=== PATIENT | female | born 1990 | race Caucasian/White ===

== ENCOUNTER 2016-07-11 19:26 | Emergency (ER) | payer OTHER ==
--- NOTE | 2016-07-11 21:18 | ED ORDER SUMMARY ---
..... Patient: POLI NAVAS OrderSheet [facility] VisitID: [id number] [address] [place] [address] 25y, F Registration Date/Time: 07/11/2016 ORDER SHEET Weight: 56.6 kg (stated) Allergies: Vicodin GENERAL ORDERS: CBC w Diff Urgent (20:07/11/2016 EKoroleva P.A.-C) (Ack 20:09 TBergley) (20:29 JRomanelli R.N.) CMP Urgent (20:07/11/2016 EKoroleva P.A.-C) (Ack 20:09 TBergley) (20:29 JRomanelli R.N.) UA-Culture if indicated Urgent (20:32 07/11/2016 JRomanelli R.N. verbal order read back to EKoroleva P.A.-C) (20:32 JRomanelli R.N.) Urine Urgent (20:32 07/11/2016 JRomanelli R.N. verbal order read back to EKoroleva P.A.-C) (20:32 JRomanelli R.N.) MEDICATION ORDERS: IV FLUIDS: IV Saline Lock (20:01 07/11/2016 EKoroleva P.A.-C) (20:29 JRomanelli R.N.) Zofran IV 4 mg (NOW) (20:01 07/11/2016 EKoroleva P.A.-C) (20:30 JRomanelli R.N.) IV NS : initial bolus 1000 mL (1000 mL/hr), then 1000 mL/hr for X1 (NOW); Lawson (20:07 07/11/2016 EKoroleva P.A.-C) (20:31 JRomanelli R.N.) Reglan IV 10 mg (NOW) (21:17 07/11/2016 EKoroleva P.A.-C) (21:36 JQuivey R.N.) Zofran IV 4 mg (NOW) (21:37 07/11/2016 EKoroleva P.A.-C) (Ack 21:48 JQuivey R.N.) (21:49 JQuivey R.N.) ORDER SHEET NOTES: [Electronically signed by Chiqui Espino P.A.-C (22:15 07/11/2016)] [Electronically signed by Mars Thomas R.N. (22:52 07/11/2016)] [Electronically locked/signed by Mars Thomas R.N. (22:52 07/11/2016)]
--- NOTE | 2016-07-11 21:18 | ED NURSING NOTES ---
Clinical Report - Nurses [facility] [address] [place] [address] 07/11/2016 19:30 Patient: POLI NAVAS TRIAGE Triage time 19:45 Jul 11 2016. Acuity: LEVEL 3. Chief Complaint: ABDOMINAL PAIN, NAUSEA, VOMITING and DIARRHEA. Alert. LINDA COMA SCORE: [place] Coma Scale: 15- eyes open spontaneously (4); best verbal response- oriented x 4 (5); best motor response- obeys commands (6). --20:04 Mars Thomas R.N. 19:51 07/11/16. BP: 119/90. HR: 102. RR: 18. O2 saturation: 97% on room air. Temp: 99.2 F. Pain level now: 6/10. Additional comments: Abdominal Pain. --20:04 Mars Thomas R.N. Weight: 56.6 kg stated. Height/Length: 65 inches Per Patient. BMI: 20.8. --19:59 Mars Thomas R.N. Medications Acyclovir Oral, daily (for "cold" sores). --19:53 Mars Thomas R.N. Control Pills 1 pill, daily. --19:54 aMrs Thomas R.N. Medication/allergy information source: the patient. --20:04 Mars Thomas R.N. Allergies Vicodin. Definite Moderate(anxiety) (and hematemesis) --19:53 Mars Thomas R.N. History Arrived by private vehicle. Historian: patient. Accompanied by family and mother. ( Abdominal Pain associated with N/V for the last 2 1/2 hours. Pt also states hx of diarrhea). This started today. Onset. (about 2 1/2 hours ago). She has had nausea, vomiting, diarrhea and abdominal pain. Treatment COMBAT SYSTEMS ENGINEER: None. PAST MEDICAL HX: Immunizations: status is unknown and seasonal influenza: first dose. Last normal menstrual period was 3 weeks ago. Denies current . SOCIAL HX: Never smoker. Alcohol use; consumes one liquor weekly. No drug use. No recent travel. ABUSE ASSESSMENT: No report of abuse. FALL RISK ASSESSMENT: Fall risk assessment completed. No fall risk identified. NUTRITIONAL RISK ASSESSMENT: The nutritional risk assessment revealed no deficiencies. FUNCTIONAL ASSESSMENT: Functional assessment: no impairments noted. LEARNING NEEDS ASSESSMENT: The learning needs assessment revealed no barriers. SKIN INTEGRITY ASSESSMENT: Skin integrity risk assessment completed. No skin integrity risk identified. --20:04 Mars Thomas R.N. PROBLEMS: IBS. Renal Lithiasis. --19:57 Mars Thomas R.N. ADDITIONAL SURGERIES: Colonoscopy. --19:57 Mars Thomas R.N. Interventions ID and allergy band on patient. To treatment room. --20:04 Mars Thomas R.N. PHYSICAL ASSESSMENT To room via wheelchair. GENERAL / NEURO / PSYCH: Alert. Oriented X 4. HEENT: Mucous membranes are pink. RESPIRATORY: Respirations not labored. CVS: Normal sinus rhythm noted. Capillary refill less than 2 seconds. GI / : Abdominal tenderness. SKIN: Skin is warm and dry. --20:04 Mars Thomas R.N. NURSING PROGRESS NOTES Patient gowned. Reassurance given to the patient. Patient identifiers checked. Call light placed in reach. Side rails up x 1. Bed placed in lowest position. Brakes of bed on. Patient ready for evaluation- chart flagged and PA notified. --20:05 Mars Thomas R.N. 20:15 07/11/2016 Site #1 started via IV in the left antecubital space with an 20g angiocath, with aseptic technique and good blood return; one attempt. Blood drawn: rainbow set. Labeled in the presence of the patient and sent to the lab. --20:29 Mars Thomas R.N. 20:20 07/11/2016 Zofran (Ondansetron HCl) IVP 4 mg given over 2 second(s) via site #1. Allergies verified and confirmed 5 rights. IV patency established. IV site checked: no pain, redness, or swelling. IV flushed thoroughly pre- and post-medication administration. IVP given by RN. --20:30 Mars Thomas R.N. 20:20 07/11/2016 Started bag #1 1000 mL IV Fluids IV NS (Saline); at 999 mL/hr over 60 minute(s) via site #1 via IV pump. Allergies verified and confirmed 5 rights. IV patency established. IV site checked: no pain, redness, or swelling. IV flushed thoroughly pre- and post-medication administration. --20:31 Mars Thomas R.N. 21:20 07/11/2016 IV Fluids IV NS Bag Change: bag #1 infused. Total amount infused: 1000. STARTED bag #2 at 1000 mL/hr via IV pump. Confirmed 5 rights. IV patency established. IV site checked: no pain, redness, or swelling. IV flushed thoroughly. --21:30 Mars Thomas R.N. 21:34 07/11/2016 Reglan (Metoclopramide HCl) IVP 10 mg given over 2 minute(s) via site #1. Allergies verified and confirmed 5 rights. IV patency established. IV site checked: no pain, redness, or swelling. IV flushed thoroughly pre- and post-medication administration. --21:36 Mars Costa R.N. 21:49 07/11/2016 Zofran (Ondansetron HCl) IVP 4 mg given over 2 minute(s) via site #1. Allergies verified and confirmed 5 rights. IV patency established. IV site checked: no pain, redness, or swelling. IV flushed thoroughly pre- and post-medication administration. --21:49 Mars Costa R.N. 21:15 07/11/16. BP: 100/58. HR: 82. RR: 18. O2 saturation: 99% on room air. Pain level now: 3/10. --22:46 Mars Thomas R.N. 21:45 07/11/16. BP: 103/62. HR: 83. RR: 18. O2 saturation: 97%. Pain level now: 0/10. --22:49 Mars Thomas R.N. 22:20 07/11/2016 Site #1 removed upon discharge. Catheter intact. Manual pressure, pressure dressing and bandaid applied. --22:51 Mars Thomas R.N. 22:20 07/11/2016 IV Fluids IV NS Discontinued: bag #2 infused upon discharge. Total amount infused: 1000 mL. IV patency established. IV site checked: no pain, redness, or swelling. IV flushed thoroughly. --22:50 Mars Thomas R.N. DISPOSITION / DISCHARGE 22:15 07/11/16. BP: 102/64. HR: 77. RR: 18. O2 saturation: 98% on room air. Temp: 99 F. Pain level now: 0/10. --22:40 Mars Thomas R.N. Departure time: 2224. --22:40 Mars Thomas R.N. 22:25. Condition at departure: improved. No learning barriers present. Discharge instructions provided and reviewed with the patient and parent. Reviewed medication(s) information (prescription given to mother). Reviewed referral to family practice for followup. Work note given. Patient and parent verbalized understanding. Written instructions provided in Thai. The patient was discharged by the physician assistant track and field coach. She was discharged home and accompanied by parent. She left the Emergency Department ambulatory and via private vehicle. Parent driving. --22:43 Mars Thomas R.N. Locked/Released at 07/11/2016 22:52 by Mars Thomas R.N.
--- NOTE | 2016-07-11 21:18 | ED CLINICAL REPORT ---
Clinical Report - Physicians/Mid Levels [facility] [address] [place] [place] [address] 07/11/2016 19:30 Patient: POLI NAVAS Time Seen: 20:02 Jul 11 2016. Arrived- By private vehicle. Historian- patient. HISTORY OF PRESENT ILLNESS Chief Complaint: VOMITING. This started just prior to arrival and is still present. The patient has had nausea, vomiting and diarrhea. No flank pain. Has not recently been on antibiotics. Possible bad food exposure. The illness is described as mild. (Patient reports recently eating food at a function, and subsequent to such developing nausea vomiting and diarrhea. No other sick contacts. No fevers.. Previously this am felt well. Cramping generalized abd pain post emesis.). REVIEW OF SYSTEMS No fever, difficulty with urination, headache, dizziness or cough. Denies current . All systems otherwise negative, except as recorded above. PAST HISTORY Problems: IBS. Renal Lithiasis. Additional Surgeries: Colonoscopy. Medications: Control Pills 1 pill, daily. Acyclovir Oral, daily (for "cold" sores). Allergies: Vicodin. Definite Moderate(anxiety) (and hematemesis). SOCIAL HISTORY Never smoker. Alcohol use. ADDITIONAL NOTES The nursing notes have been reviewed. PHYSICAL EXAM Vital Signs: 07/11/2016 19:51 BP: 119/90. HR: 102. RR: 18. O2 saturation: 97%. Temp: 99.2 F. Pain level now: 6/10. Appearance: Alert. Eyes: Eyes normal inspection. ENT: Nose normal. Pharynx normal. Neck: Normal inspection. CVS: Normal heart rate and rhythm. Heart sounds normal. Respiratory: No respiratory distress. Breath sounds normal. No accessory muscle use or decreased air movement. Abdomen: Soft and nontender. No abdominal tenderness or rebound tenderness. The bowel sounds are not abnormal. Neuro: Oriented X 3. No motor deficit. LABS, X-RAYS, AND EKG Laboratory Tests: UA-Culture if indicated: (SAVANNAH: 07/11/2016 20:07) ( MsgRcvd 07/11/2016 21:14) Final results Test Result Flag Units (Reference) URINE COLOR YELLOW URINE APPEARANCE CLEAR URINE GLUCOSE NEGATIVE (NEGATIVE) URINE BILIRUBIN NEGATIVE (NEGATIVE) URINE KETONE 1+ (NEGATIVE) URINE SPECIFIC GRAVITY 1.025 (1.010-1.030) URINE PH 6.0 (5.0-8.0) URINE PROTEIN NEGATIVE (NEGATIVE) URINE UROBILINOGEN 0.2 EU/dL (0.2-1.0) URINE NITRITE NEGATIVE (NEGATIVE) URINE BLOOD NEGATIVE (NEGATIVE) URINE LEUK ESTERASE NEGATIVE (NEGATIVE) URINE RBC 0-1 rbc/hpf (0-1) URINE WBC 0-1 wbc/hpf (0-1) URINE EPITHELIAL CELLS 0-1 EPI/hpf (0-5) URINE BACTERIA TRACE (<1+) (NONE SEEN) URINE COMMENT CULT NOT INDICATED URINE CULTURES ARE SET-UP BASED ON THE FOLLOWING CRITERIA:POSITIVE NITRITEPOSITIVE LEUKOCYTE ESTERASEGREATER THAN 10 WHITE BLOOD CELLSMODERATE (2+) OR GREATER BACTERIA Urine: (SAVANNAH: 07/11/2016 20:07) ( [facility] 07/11/2016 20:44) Final results Test Result Flag Units (Reference) URINE NEGATIVE CBC w Diff: (SAVANNAH: 07/11/2016 20:15) ( [facility] 07/11/2016 20:44) Final results Test Result Flag Units (Reference) WHITE BLOOD COUNT 15.5 H K/uL (4.5-11.5) RED BLOOD COUNT 5.17 M/uL (4.00-5.20) HEMOGLOBIN 15.9 gm/dL (12.0-16.0) HEMATOCRIT 47.4 H % (36.0-46.0) MEAN CELL VOLUME 92 fL (80-100) MEAN CORPUSCULAR HGB 31 pg (26-34) MEAN CORPUSCULAR HGB CONC 34 g/dL (31-37) RED CELL DISTRIBUTION WIDTH 12.4 % (11.6-14.8) PLATELET COUNT 290 K/uL (150-400) NEUTROPHIL % 91.4 H % (50-75) LYMPH % 4.3 L % (25-40) MONO % 3.9 % (3-14) EOSINOPHIL % 0.3 % (0-4) BASOPHIL % 0.1 % (0-2) CMP: (SAVANNAH: 07/11/2016 20:15) ( MsgRcvd 07/11/2016 21:02) Final results Test Result Flag Units (Reference) GLUCOSE 101 mg/dL (70-110) BUN 16 mg/dL (7-18) CREATININE 0.7 mg/dL (0.6-1.3) Estimated GFR >60 mL/min Estimated GFR- >60 mL/min Note: Persistent reduction over 3 months in eGFR<60 mL/min/1.73 m2 defines CKD. Patients with eGFR values>=60 mL/min/1.73 m2 may also have CKD if evidence ofpersistent proteinuria. Additional information may be foundat www.kidney.org. SODIUM 143 mmol/L (136-145) POTASSIUM 3.6 mmol/L (3.5-5.1) CHLORIDE 106 mmol/L (98-107) CARBON DIOXIDE 25 mmol/L (21-32) CALCIUM 8.6 mg/dL (8.5-10.1) TOTAL PROTEIN 7.7 g/dL (6.4-8.2) ALBUMIN 4.1 g/dL (3.3-5.0) BILIRUBIN, TOTAL 0.5 mg/dL (0.0-1.0) ALKALINE PHOSPHATASE 64 U/L (46-116) AST (SGOT) 21 U/L (15-37) ALT (SGPT) 25 U/L (12-78) . PROGRESS AND PROCEDURES Course of Care: Patient with improvement of symptoms here in the ER with antiemetic, IV hydration. Emesis with dehydration noted on exam, leukocytosis with a left shift, suspected fromrecent viral etiology as well as new onset of emesis. Abdomen is now soft. She is asymptomatic. Suspicion for acute surgical abdomenin light of an exam which is unremarkable is low. Patient is stable. Patient/family counseled. Differential Diagnosis: I considered gastric etiology, gastritis, gastroenteritis, peptic ulcer disease, acute appendicitis, mesenteric lymphadenitis, Meckel's diverticulum, infarction of appendix epiploica of colon, diverticulitis, small bowel obstruction, biliary colic, hepatitis, splenic injury, intraabdominal abscess, urinary tract infection, cystitis, ovarian cyst, ovarian torsion, , pelvic inflammatory disease and pelvic abscess as a possible cause of abdominal pain in this patient. This is a partial list of diagnoses considered. Disposition: Discharged. Condition: good. CLINICAL IMPRESSION Acute abdominal pain. Vomiting with nausea and volume depletion. INSTRUCTIONS Rest. Drink plenty of fluids. Prescription Medications: Zofran (orally disintegrating tablets) 4 mg: take 1 orally every 6 hours for 3 days as needed for nausea. Dispense ten (10). No refill. Reglan 10 mg tablets: take 1 orally every 6 hours for 3 days as needed for nausea or vomiting. Dispense ten (10). No refills. Substitution is permissible. Follow-up: Follow up with your doctor in three days. Understanding of the discharge instructions verbalized. (Electronically signed by Chiqui Espino P.A.-C 07/11/2016 22:15)
--- NOTE | 2016-07-11 21:18 | ED NURSING NOTES ---
Clinical Report - Nurses [facility] [address] [place] [address] 07/11/2016 19:30 Patient: POLI NAVAS TRIAGE Triage time 19:45 Jul 11 2016. Acuity: LEVEL 3. Chief Complaint: ABDOMINAL PAIN, NAUSEA, VOMITING and DIARRHEA. Alert. LINDA COMA SCORE: [place] Coma Scale: 15- eyes open spontaneously (4); best verbal response- oriented x 4 (5); best motor response- obeys commands (6). --20:04 Mars Thomas R.N. 19:51 07/11/16. BP: 119/90. HR: 102. RR: 18. O2 saturation: 97% on room air. Temp: 99.2 F. Pain level now: 6/10. Additional comments: Abdominal Pain. --20:04 Mars Thomas R.N. Weight: 56.6 kg stated. Height/Length: 65 inches Per Patient. BMI: 20.8. --19:59 Mars Thomas R.N. Medications Acyclovir Oral, daily (for "cold" sores). --19:53 Mars Thomas R.N. Control Pills 1 pill, daily. --19:54 Mars Thomas R.N. Medication/allergy information source: the patient. --20:04 Mars Thomas R.N. Allergies Vicodin. Definite Moderate(anxiety) (and hematemesis) --19:53 Mars Thomas R.N. History Arrived by private vehicle. Historian: patient. Accompanied by family and mother. ( Abdominal Pain associated with N/V for the last 2 1/2 hours. Pt also states hx of diarrhea). This started today. Onset. (about 2 1/2 hours ago). She has had nausea, vomiting, diarrhea and abdominal pain. Treatment CONTRACT LEAD: None. PAST MEDICAL HX: Immunizations: status is unknown and seasonal influenza: first dose. Last normal menstrual period was 3 weeks ago. Denies current . SOCIAL HX: Never smoker. Alcohol use; consumes one liquor weekly. No drug use. No recent travel. ABUSE ASSESSMENT: No report of abuse. FALL RISK ASSESSMENT: Fall risk assessment completed. No fall risk identified. NUTRITIONAL RISK ASSESSMENT: The nutritional risk assessment revealed no deficiencies. FUNCTIONAL ASSESSMENT: Functional assessment: no impairments noted. LEARNING NEEDS ASSESSMENT: The learning needs assessment revealed no barriers. SKIN INTEGRITY ASSESSMENT: Skin integrity risk assessment completed. No skin integrity risk identified. --20:04 Mars Thomas R.N. PROBLEMS: IBS. Renal Lithiasis. --19:57 Mars Thomas R.N. ADDITIONAL SURGERIES: Colonoscopy. --19:57 Mars Thomas R.N. Interventions ID and allergy band on patient. To treatment room. --20:04 Mars Thomas R.N. PHYSICAL ASSESSMENT To room via wheelchair. GENERAL / NEURO / PSYCH: Alert. Oriented X 4. HEENT: Mucous membranes are pink. RESPIRATORY: Respirations not labored. CVS: Normal sinus rhythm noted. Capillary refill less than 2 seconds. GI / : Abdominal tenderness. SKIN: Skin is warm and dry. --20:04 Mars Thomas R.N. NURSING PROGRESS NOTES Patient gowned. Reassurance given to the patient. Patient identifiers checked. Call light placed in reach. Side rails up x 1. Bed placed in lowest position. Brakes of bed on. Patient ready for evaluation- chart flagged and PA notified. --20:05 Mars Thomas R.N. 20:15 07/11/2016 Site #1 started via IV in the left antecubital space with an 20g angiocath, with aseptic technique and good blood return; one attempt. Blood drawn: rainbow set. Labeled in the presence of the patient and sent to the lab. --20:29 Mars Thomas R.N. 20:20 07/11/2016 Zofran (Ondansetron HCl) IVP 4 mg given over 2 second(s) via site #1. Allergies verified and confirmed 5 rights. IV patency established. IV site checked: no pain, redness, or swelling. IV flushed thoroughly pre- and post-medication administration. IVP given by RN. --20:30 Mars Thomas R.N. 20:20 07/11/2016 Started bag #1 1000 mL IV Fluids IV NS (Saline); at 999 mL/hr over 60 minute(s) via site #1 via IV pump. Allergies verified and confirmed 5 rights. IV patency established. IV site checked: no pain, redness, or swelling. IV flushed thoroughly pre- and post-medication administration. --20:31 Mars Thomas R.N. 21:20 07/11/2016 IV Fluids IV NS Bag Change: bag #1 infused. Total amount infused: 1000. STARTED bag #2 at 1000 mL/hr via IV pump. Confirmed 5 rights. IV patency established. IV site checked: no pain, redness, or swelling. IV flushed thoroughly. --21:30 Mars Thomas R.N. 21:34 07/11/2016 Reglan (Metoclopramide HCl) IVP 10 mg given over 2 minute(s) via site #1. Allergies verified and confirmed 5 rights. IV patency established. IV site checked: no pain, redness, or swelling. IV flushed thoroughly pre- and post-medication administration. --21:36 Mars Costa R.N. 21:49 07/11/2016 Zofran (Ondansetron HCl) IVP 4 mg given over 2 minute(s) via site #1. Allergies verified and confirmed 5 rights. IV patency established. IV site checked: no pain, redness, or swelling. IV flushed thoroughly pre- and post-medication administration. --21:49 Mars Costa R.N. 21:15 07/11/16. BP: 100/58. HR: 82. RR: 18. O2 saturation: 99% on room air. Pain level now: 3/10. --22:46 Mars Thomas R.N. 21:45 07/11/16. BP: 103/62. HR: 83. RR: 18. O2 saturation: 97%. Pain level now: 0/10. --22:49 Mars Thomas R.N. 22:20 07/11/2016 Site #1 removed upon discharge. Catheter intact. Manual pressure, pressure dressing and bandaid applied. --22:51 Mars Thomas R.N. 22:20 07/11/2016 IV Fluids IV NS Discontinued: bag #2 infused upon discharge. Total amount infused: 1000 mL. IV patency established. IV site checked: no pain, redness, or swelling. IV flushed thoroughly. --22:50 Mars Thomas R.N. DISPOSITION / DISCHARGE 22:15 07/11/16. BP: 102/64. HR: 77. RR: 18. O2 saturation: 98% on room air. Temp: 99 F. Pain level now: 0/10. --22:40 Mars Thomas R.N. Departure time: 2224. --22:40 Mars Thomas R.N. 22:25. Condition at departure: improved. No learning barriers present. Discharge instructions provided and reviewed with the patient and parent. Reviewed medication(s) information (prescription given to mother). Reviewed referral to family practice for followup. Work note given. Patient and parent verbalized understanding. Written instructions provided in Maltese. The patient was discharged by the physician assistant spa director. She was discharged home and accompanied by parent. She left the Emergency Department ambulatory and via private vehicle. Parent driving. --22:43 Mars Thomas R.N. Locked/Released at 07/11/2016 22:52 by Mars Thomas R.N.
--- NOTE | 2016-07-11 21:18 | ED ORDER SUMMARY ---
..... Patient: POLI NAVAS OrderSheet [facility] VisitID: [id number] [address] [place] [address] 25y, F Registration Date/Time: 07/11/2016 ORDER SHEET Weight: 56.6 kg (stated) Allergies: Vicodin GENERAL ORDERS: CBC w Diff Urgent (20:07/11/2016 EKoroleva P.A.-C) (Ack 20:09 TBergley) (20:29 JRomanelli R.N.) CMP Urgent (20:07/11/2016 EKoroleva P.A.-C) (Ack 20:09 TBergley) (20:29 JRomanelli R.N.) UA-Culture if indicated Urgent (20:32 07/11/2016 JRomanelli R.N. verbal order read back to EKoroleva P.A.-C) (20:32 JRomanelli R.N.) Urine Urgent (20:32 07/11/2016 JRomanelli R.N. verbal order read back to EKoroleva P.A.-C) (20:32 JRomanelli R.N.) MEDICATION ORDERS: IV FLUIDS: IV Saline Lock (20:01 07/11/2016 EKoroleva P.A.-C) (20:29 JRomanelli R.N.) Zofran IV 4 mg (NOW) (20:01 07/11/2016 EKoroleva P.A.-C) (20:30 JRomanelli R.N.) IV NS : initial bolus 1000 mL (1000 mL/hr), then 1000 mL/hr for X1 (NOW); Lawson (20:07 07/11/2016 EKoroleva P.A.-C) (20:31 JRomanelli R.N.) Reglan IV 10 mg (NOW) (21:17 07/11/2016 EKoroleva P.A.-C) (21:36 JQuivey R.N.) Zofran IV 4 mg (NOW) (21:37 07/11/2016 EKoroleva P.A.-C) (Ack 21:48 JQuivey R.N.) (21:49 JQuivey R.N.) ORDER SHEET NOTES: [Electronically signed by Chiqui Espino P.A.-C (22:15 07/11/2016)] [Electronically signed by Mars Thomas R.N. (22:52 07/11/2016)] [Electronically locked/signed by Mars Thomas R.N. (22:52 07/11/2016)]
--- NOTE | 2016-07-11 22:52 | ED MED RECONCILIATION SUMMARY ---
Patient: POLI NAVAS Medication Reconciliation Report [facility] VisitID: [id number] [address] [place] [address] 25y, F Registration Date/Time: 07/11/2016 Weight: 56.6 kg Height/Length: 65 in. BMI: 20.8 ALLERGIES: Vicodin The patient's Home Medications are listed below: THE FOLLOWING MEDICATIONS NEED TO BE RECONCILED: Acyclovir Oral, daily, for "cold" sores Control Pills 1 pill, daily The source(s) of the original Home Medication information: patient The following Medications were given to the patient in the Emergency Department: Zofran [IVP] IVP 4 mg, administered: 07/11/2016 8:20:00 PM IV NS IV Fluids bolus 0, then 999 mL/hr, administered: 07/11/2016 8:20:00 PM Reglan [IVP] IVP 10 mg, administered: 07/11/2016 9:34:00 PM Zofran [IVP] IVP 4 mg, administered: 07/11/2016 9:49:00 PM The following Medications were prescribed to the patient: Zofran (orally disintegrating tablets) 4 mg: take 1 orally every 6 hours for 3 days as needed for nausea. Dispense ten (10). No refill. -- Chiqui Espino, P.A.-Forest Reglan 10 mg tablets: take 1 orally every 6 hours for 3 days as needed for nausea or vomiting. Dispense ten (10). No refills. Substitution is permissible. -- Chiqui Espino, P.A.-C
--- NOTE | 2016-07-11 22:52 | ED MED RECONCILIATION SUMMARY ---
Patient: POLI NAVAS Medication Reconciliation Report [facility] VisitID: [id number] [address] [place] [address] 25y, F Registration Date/Time: 07/11/2016 Weight: 56.6 kg Height/Length: 65 in. BMI: 20.8 ALLERGIES: Vicodin The patient's Home Medications are listed below: THE FOLLOWING MEDICATIONS NEED TO BE RECONCILED: Acyclovir Oral, daily, for "cold" sores Control Pills 1 pill, daily The source(s) of the original Home Medication information: patient The following Medications were given to the patient in the Emergency Department: Zofran [IVP] IVP 4 mg, administered: 07/11/2016 8:20:00 PM IV NS IV Fluids bolus 0, then 999 mL/hr, administered: 07/11/2016 8:20:00 PM Reglan [IVP] IVP 10 mg, administered: 07/11/2016 9:34:00 PM Zofran [IVP] IVP 4 mg, administered: 07/11/2016 9:49:00 PM The following Medications were prescribed to the patient: Zofran (orally disintegrating tablets) 4 mg: take 1 orally every 6 hours for 3 days as needed for nausea. Dispense ten (10). No refill. -- Chiqui Espino, P.A.-Forest Reglan 10 mg tablets: take 1 orally every 6 hours for 3 days as needed for nausea or vomiting. Dispense ten (10). No refills. Substitution is permissible. -- Chiqui Espino, P.A.-C
--- NOTE | 2016-07-11 22:52 | ED MAR SUMMARY ---
..... Medication Administration Record [facility] [address] [place] [address] Patient: POLI NAVAS Visit ID: [id number] 25y, F Weight: 56.6 kg Height/Length: 65 in BMI: 20.8 ALLERGIES: Vicodin Given 20:20 07/11/2016 Mars Thomas R.N. Medication Administered: ZOFRAN [IVP] (ONDANSETRON HCL), Dose: 4 mg IVP over 2 second(s), Site: #1 left AC. Medication Ordered: Zofran IV 4 mg (NOW). Start 20:07/11/2016 Mars Thomas R.NJosh, Stop 22:07/11/2016 Mars Thomas R.N. Medication Administered: IV NS (SALINE), Dose: IV Fluids over 60 minute(s), Rate: 999 mL/hr, Dispensed: 1000 mL bag, Site: #1 left AC. Medication Ordered: IV NS : initial bolus 1000 mL (1000 mL/hr), then 1000 mL/hr for X1 (NOW); Lawson. Given 21:34 07/11/2016 Mars Costa R.NJosh Medication Administered: REGLAN [IVP] (METOCLOPRAMIDE HCL), Dose: 10 mg IVP over 2 minute(s), Site: #1 left AC. Medication Ordered: Reglan IV 10 mg (NOW). Given 21:49 07/11/2016 Mars Costa R.N. Medication Administered: ZOFRAN [IVP] (ONDANSETRON HCL), Dose: 4 mg IVP over 2 minute(s), Site: #1 left AC. Medication Ordered: Zofran IV 4 mg (NOW).
--- NOTE | 2016-07-11 22:52 | ED MAR SUMMARY ---
..... Medication Administration Record [facility] [address] [place] [address] Patient: POLI NAVAS Visit ID: [id number] 25y, F Weight: 56.6 kg Height/Length: 65 in BMI: 20.8 ALLERGIES: Vicodin Given 20:20 07/11/2016 Mars Thomas R.N. Medication Administered: ZOFRAN [IVP] (ONDANSETRON HCL), Dose: 4 mg IVP over 2 second(s), Site: #1 left AC. Medication Ordered: Zofran IV 4 mg (NOW). Start 20:07/11/2016 Mars Thomas R.NJosh, Stop 22:07/11/2016 Mars Thomas R.N. Medication Administered: IV NS (SALINE), Dose: IV Fluids over 60 minute(s), Rate: 999 mL/hr, Dispensed: 1000 mL bag, Site: #1 left AC. Medication Ordered: IV NS : initial bolus 1000 mL (1000 mL/hr), then 1000 mL/hr for X1 (NOW); Lawson. Given 21:34 07/11/2016 Mars Costa R.NJosh Medication Administered: REGLAN [IVP] (METOCLOPRAMIDE HCL), Dose: 10 mg IVP over 2 minute(s), Site: #1 left AC. Medication Ordered: Reglan IV 10 mg (NOW). Given 21:49 07/11/2016 Mars Costa R.N. Medication Administered: ZOFRAN [IVP] (ONDANSETRON HCL), Dose: 4 mg IVP over 2 minute(s), Site: #1 left AC. Medication Ordered: Zofran IV 4 mg (NOW).
--- NOTE | 2016-07-11 22:52 | ED DISCHARGE INSTRUCTIONS ---
Patient: POLI NAVAS General Instructions [facility] VisitID: [id number] [place] [address] 25y, F Registration Date/Time: 07/11/2016 Acute abdominal pain. Vomiting with nausea and volume depletion. INSTRUCTIONS Rest. Drink plenty of fluids. Prescription Medications: Zofran (orally disintegrating tablets) 4 mg: take 1 orally every 6 hours for 3 days as needed for nausea. Dispense ten (10). No refill. Reglan 10 mg tablets: take 1 orally every 6 hours for 3 days as needed for nausea or vomiting. Dispense ten (10). No refills. Substitution is permissible. Follow-up: Follow up with your doctor in three days. Understanding of the discharge instructions verbalized. ADDITIONAL INFORMATION Abdominal Pain, Unknown Cause (Female) The exact cause of your abdominal (stomach) pain is not certain. This does not mean that this is something to worry about, or the right tests were not done. Everyone likes to know the exact cause of the problem, but sometimes with abdominal pain, there is no clear-cut cause, and this could be a good thing. The good news is that your symptoms can be treated, and you will feel better. Your condition does not seem serious now; however, sometimes the signs of a serious problem may take more time to appear. For this reason,it is important for you to watch for any new symptoms, problems,or worsening of your condition. Over the next few days, the abdominal pain may come and go, or be continuous. Other common symptoms can include nausea and vomiting. Sometimes it can be difficult to tell if you feel nauseous, you may just feel bad and not associate that feeling with nausea. Constipation, diarrhea, and a fever may go along with the pain. The pain may continue even if treated correctly over the following days. Depending on how things go, sometimes the cause can become clear and may require further or different treatment. Additional evaluations, medications, or tests may be needed. Home care Your health care provider may prescribe medications for pain, symptoms, or an infection. Follow the health care provider's instructions for taking these medications. General care Rest until your next exam. No strenuous activities. Try to find positions that ease discomfort. A small pillow placed on the abdomen may help relieve pain. Something warm on your abdomen (such as a heating pad) may help, but be careful not to burn yourself. Diet Do not force yourself to eat, especially if having cramps, vomiting, or diarrhea. Water is important so you do not get dehydrated. Soup may also be good. Sports drinks may also help, especially if they are not too acidic. Make sure you don't drink sugary drinks as this can make things worse. Take liquids in small amounts. Do not guzzle them. Caffeine sometimes makes the pain and cramping worse. Avoid dairy products if you have vomiting or diarrhea. Don't eat large amounts at a time. Wait a few minutes between bites. Eat a diet low in fiber (called a low-residue diet). Foods allowed include refined breads, white rice, fruit and vegetable juices without pulp, tender meats. These foods will pass more easily through the intestine. Avoid whole-grain foods, whole fruits and vegetables, meats, seeds and nuts, fried or fatty foods, dairy, alcohol and spicy foods until your symptoms go away. Follow-up care Follow up with your health care provider as instructed, or if your pain does not begin to improve in the next 24 hours. When to seek medical care Seek prompt medical care if any of the following occur: Pain gets worse or moves to the right lower abdomen New or worsening vomiting or diarrhea Swelling of the abdomen Unable to pass stool for more than three days Fever of 100.4F (38C) or higher, or as directed by your healthcare provider. Blood in vomit or bowel movements (dark red or black color) Jaundice (yellow color of eyes and skin) Weakness, dizziness Chest, arm, back, neck or jaw pain Unexpected vaginal bleeding or missed period Call 911 Call emergency services if any of the following occur: Trouble breathing Confusion Fainting or loss of consciousness Rapid heart rate Seizure Vomiting [6Yr-Adult] Vomiting is a common symptom that may be due to different causes. These include gastroenteritis ("stomach flu"), food poisoning and gastritis. There are other more serious causes of vomiting which may be hard to diagnose early in the illness. Therefore, it is important to watch for the warning signs listed below. The main danger from repeated vomiting is dehydration. This is due to excess loss of water and minerals from the body. When this occurs, body fluids must be replaced. Home Care: If symptoms are severe, rest at home for the next 24 hours. You may use acetaminophen (Tylenol) or ibuprofen (Motrin, Advil) to control fever, unless another medicine was prescribed. [NOTE : If you have chronic liver or kidney disease or ever had a stomach ulcer or GI bleeding, talk with your doctor before using these medicines.] (Aspirin should never be used in anyone under 18 years of age who is ill with a fever. It may cause severe liver damage.) Avoid tobacco and alcohol use, which may worsen your symptoms. If medicines for vomiting were prescribed, take as directed. Once vomiting stops, then follow these guidelines: During The First 12-24 Hours follow the diet below: FRUIT JUICES: Apple, grape juice, clear fruit drinks, and electrolyte replacement drinks. BEVERAGES: Soft drinks without caffeine; mineral water (plain or flavored), decaffeinated tea and coffee. SOUPS: Clear broth, consomm and bouillon DESSERTS: Plain gelatin, popsicles and fruit juice bars. As you feel better, you may add 6-8 ounces of yogurt per day. During The Next 24 Hours you may add the following to the above: Hot cereal, plain toast, bread, rolls, crackers Plain noodles, rice, mashed potatoes, chicken noodle or rice soup Unsweetened canned fruit (avoid pineapple), bananas Limit caffeine and chocolate. No spices or seasonings except salt. During The Next 24 Hours Gradually resume a normal diet, as you feel better and your symptoms lessen. Follow Up with your doctor as advised if you are not improving over the next 2-3 days. Get Prompt Medical Attention if any of the following occur: Constant right-sided lower abdominal pain or increasing general abdominal pain Continued vomiting (unable to keep liquids down) for 24 hours Frequent diarrhea (more than 5 times a day); blood (red or black color) or mucus in diarrhea Reduced urine output or extreme thirst Weakness, dizziness or fainting Unusually drowsy or confused Fever of 100.4F (38C) oral or higher, not better with fever medication Yellow color of the eyes or skin [place] Diet A bland diet is used for patients with an upset stomach. It consists of foods that are mild and easy to digest. It is better to eat small frequent meals rather than three large meals a day. BEVERAGES OK: Fruit juices, non-caffeinated teas and coffee, non-carbonated lewis AVOID: Carbonated beverage, caffeinated tea and coffee, all alcoholic beverages BREAD OK: Refined white, wheat or rye bread, milton or soda crackers, Kate toast, plain rolls, bagels AVOID: Whole-grain bread CEREAL OK: Refined cereals: cooked or ready to eat AVOID: Whole grain cereals and granola, or those containing bran, seeds or nuts DESSERTS OK: Peanut butter and all others except those to "avoid" AVOID: Chocolate, cocoa, coconut, popcorn, nuts, seeds, jam, marmalade FRUITS OK: Canned, cooked, frozen or fresh fruits without seeds or tough skin AVOID: Olives, skin and seeds of fruit MEATS OK: All fresh or preserved meat, fish and fowl AVOID: Any that are prepared with those spices to "avoid" CHEESE & EGGS OK: Eggs, cottage cheese, cream cheese, other cheeses AVOID: All cheeses made with those spices to "avoid" POTATOES & PASTA OK: Potato, rice, macaroni, noodles, spaghetti AVOID: None SOUPS OK: All soups without heavy seasoning AVOID: Soups made with those spices to "avoid" VEGETABLES OK: Canned, cooked, fresh or frozen mildly flavored vegetables without seeds, skins or coarse fiber AVOID: Vegetables prepared with those spices to "avoid"; skin and seeds of vegetables and those with coarse fiber SPICES OK: Salt, lemon and atka juice, vinegar, all extracts, jose cruz, cinnamon, thyme, mace, allspice, paprika AVOID: [place] powder, cloves, pepper, seed spices, garlic, gravy pickles, highly seasoned salad dressings Clear Liquid Diet Clear liquids are any liquid that you can see through as well as those that are very easy to digest. This is used while the body is recovering from irritation or infection of the stomach or intestinal tract. It may also be used before special procedures or surgery. This diet is to be used no more than three days. You may include the following items. Adults Adults should drink a total of 23 quarts of liquid per day. It may be easier to drink small frequent servings rather than a few large ones. Liquids can include: Fruit juices.Strained orange juice or lemonade (no pulp), apple, grape and cranberry juice, clear fruit drinks, sports drinks Beverages.Sport drinks, sodas, mineral water (plain or flavored), tea, black coffee, liquid gelatin (add twice the recommended amount of water) Soups.Clear broth, consomm, bouillon Desserts.Plain gelatin, popsicles, fruit juice bars Children Over 2 years old The following liquids are acceptable for children over age 2: Fruit juices.Strained orange juice or lemonade (no pulp), apple, grape and cranberry juice, clear fruit drinks Beverages. Sports drinks, sodas, mineral water (plain or flavored), tea, liquid gelatin (add twice the recommended amount of water) Soups. Clear broth, consomm, bouillon Desserts. Plain gelatin, popsicles, fruit juice bars Children under 2 years old Oral rehydration fluids such are available at drug stores and most grocery stores without a prescription. Ondansetron Oral disintegrating tablet What is this medicine? ONDANSETRON (on KEHINDE se tsering) is used to treat nausea and vomiting caused by chemotherapy. It is also used to prevent or treat nausea and vomiting after surgery. How should I use this medicine? These tablets are made to dissolve in the mouth. Do not try to push the tablet through the foil backing. With dry hands, peel away the foil backing and gently remove the tablet. Place the tablet in the mouth and allow it to dissolve, then swallow. While you may take these tablets with water, it is not necessary to do so. Talk to your turn down man regarding the use of this medicine in children. Special care may be needed. What side effects may I notice from receiving this medicine? Side effects that you should report to your doctor or health assurance services manager health care as soon as possible: allergic reactions like skin rash, itching or hives, swelling of the face, lips, or tongue breathing problems dizziness fast or irregular heartbeat feeling faint or lightheaded, falls fever and chills swelling of the hands and feet tightness in the chest Side effects that usually do not require medical attention (report to your doctor or health assurance services manager health care if they continue or are bothersome): constipation or diarrhea headache What may interact with this medicine? Do not take this medicine with any of the following medications: -apomorphine -cisapride -dofetilide -dronedarone -pimozide -thioridazine -ziprasidone This medicine may also interact with the following medications: -carbamazepine -phenytoin -rifampicin -tramadol -other medicines that prolong the QT interval (cause an abnormal heart rhythm) What if I miss a dose? If you miss a dose, take it as soon as you can. If it is almost time for your next dose, take only that dose. Do not take double or extra doses. Where should I keep my medicine? Keep out of the reach of children. Store between 2 and 30 degrees C (36 and 86 degrees F). Throw away any unused medicine after the expiration date. What should I tell my health care provider before I take this medicine? They need to know if you have any of these conditions: heart disease history of irregular heartbeat liver disease low levels of magnesium or potassium in the blood an unusual or allergic reaction to ondansetron, granisetron, other medicines, foods, dyes, or preservatives or trying to get breast-feeding What should I watch for while using this medicine? Check with your doctor or health assurance services manager health care as soon as you can if you have any sign of an allergic reaction. Metoclopramide Hydrochloride Oral tablet What is this medicine? METOCLOPRAMIDE (met oh kloe PRA mide) is used to treat the symptoms of gastroesophageal reflux disease (GERD) like heartburn. It is also used to treat people with slow emptying of the stomach and intestinal tract. How should I use this medicine? Take this medicine by mouth with a glass of water. Follow the directions on the prescription label. Take this medicine on an empty stomach, about 30 minutes before eating. Take your doses at regular intervals. Do not take your medicine more often than directed. Do not stop taking except on the advice of your doctor or health assurance services manager health care. A special MedGuide will be given to you by the pharmacist with each prescription and refill. Be sure to read this information carefully each time. Talk to your turn down man regarding the use of this medicine in children. Special care may be needed. What side effects may I notice from receiving this medicine? Side effects that you should report to your doctor or health assurance services manager health care as soon as possible: allergic reactions like skin rash, itching or hives, swelling of the face, lips, or tongue abnormal production of milk in females breast enlargement in both males and females change in the way you walk difficulty moving, speaking or swallowing drooling, lip smacking, or rapid movements of the tongue excessive sweating fever involuntary or uncontrollable movements of the eyes, head, arms and legs irregular heartbeat or palpitations muscle twitches and spasms unusually weak or tired Side effects that usually do not require medical attention (report to your doctor or health assurance services manager health care if they continue or are bothersome): change in sex drive or performance depressed mood diarrhea difficulty sleeping headache menstrual changes restless or nervous What may interact with this medicine? acetaminophen cyclosporine digoxin medicines for blood pressure medicines for diabetes, including insulin medicines for hay fever and other allergies medicines for depression, especially an Monoamine Oxidase Inhibitor (MAOI) medicines for Parkinson's disease, like levodopa medicines for sleep or for pain tetracycline What if I miss a dose? If you miss a dose, take it as soon as you can. If it is almost time for your next dose, take only that dose. Do not take double or extra doses. Where should I keep my medicine? Keep out of the reach of children. Store at room temperature between 20 and 25 degrees C (68 and 77 degrees F). Protect from light. Keep container tightly closed. Throw away any unused medicine after the expiration date. What should I tell my health care provider before I take this medicine? They need to know if you have any of these conditions: breast cancer depression diabetes heart failure high blood pressure kidney disease liver disease Parkinson's disease or a movement disorder pheochromocytoma seizures stomach obstruction, bleeding, or perforation an unusual or allergic reaction to metoclopramide, procainamide, sulfites, other medicines, foods, dyes, or preservatives or trying to get breast-feeding What should I watch for while using this medicine? It may take a few weeks for your stomach condition to start to get better. However, do not take this medicine for longer than 12 weeks. The longer you take this medicine, and the more you take it, the greater your chances are of developing serious side effects. If you are an elderly patient, a female patient, or you have diabetes, you may be at an increased risk for side effects from this medicine. Contact your doctor immediately if you start having movements you cannot control such as lip smacking, rapid movements of the tongue, involuntary or uncontrollable movements of the eyes, head, arms and legs, or muscle twitches and spasms. Patients and their families should watch out for worsening depression or thoughts of suicide. Also watch out for any sudden or severe changes in feelings such as feeling anxious, agitated, panicky, irritable, hostile, aggressive, impulsive, severely restless, overly excited and hyperactive, or not being able to sleep. If this happens, especially at the beginning of treatment or after a change in dose, call your doctor. Do not treat yourself for high fever. Ask your doctor or health assurance services manager health care for advice. You may get drowsy or dizzy. Do not drive, use machinery, or do anything that needs mental alertness until you know how this drug affects you. Do not stand or sit up quickly, especially if you are an older patient. This reduces the risk of dizzy or fainting spells. Alcohol can make you more drowsy and dizzy. Avoid alcoholic drinks. You have been given the following additional information: Abdominal Pain, Unknown Cause, (Female) Vomiting (6Y-Adult) Diet, [place] (Adult) Diet, Clear Liquid Ondansetron Oral disintegrating tablet Metoclopramide Hydrochloride Oral tablet Rest. (Electronically signed by Chiqui Espino P.A.-C 07/11/2016 22:15)
== END 2016-07-11 22:25 | disposition home or self-care (01) ==
LOC: ED SRH 19:26
DX: R11.2 Nausea with vomiting, unspecified (principal); R10.9 Unspecified abdominal pain; E86.0 Dehydration; D72.829 Elevated white blood cell count, unspecified; Z88.5 Allergy status to narcotic agent
CPT/HCPCS: 90004; 90100; 93070; 95059